=== PATIENT | female | born 1965 | race Caucasian/White ===

== ENCOUNTER 2022-01-22 12:57 | Outpatient (CLI) | payer OTHER, SELFPAY ==
--- NOTE | 2022-01-22 13:11 | MR_ITS ---
WS: [id number] MRI RIGHT SHOULDER NONCONTRAST TECHNIQUE: Sagittal T2, coronal T1, T2 and proton density imaging. Axial gradient PDE imaging. CLINICAL INFORMATION: R SHOULDER PAIN COMPARISON: None. FINDINGS: Moderate degenerative arthritis at the AC joint. Subacromial and subdeltoid fluid. Narrowing of the s ubacromial space. Slight subacromial spurring. Synovial thickening at the AC joint. Chronic thinning of the rotator cuff. High-grade tear of the distal supraspinatus proximal to the ins ertion. Retraction measures 19 mm. Chronic thinning of the infraspinatus. Tiny undersurface tear at the infraspinatus insertion. Edema w ithin the infraspinatus muscle belly. Normal teres minor. Normal subscapularis. Biceps tendon intact within the bicipital groove. Fluid along the biceps tendon sheath. Small amount of subacromial fluid. Small subcoracoid effusion. No evidence of avascular necrosis in the humeral head. Degenerative fraying of the glenoid labrum. MR/MR shoulder RT wo con* [id number] IMPRESSION: 1. Moderate degenerative arthritis AC joint with subacromial subdeltoid fluid. Narrowing of the subacromial space. 2. High-grade tear of the distal supraspinatus with 1.9 cm of tendon retractio n. 3. Chronic thinning of the infraspinatus with tiny undersurface insertional te ar. Marked thinning of the infraspinatus tendon distally. 4. Rotator cuff is otherwise intact. 5. Normal biceps tendon in the bicipital groove. 6. Intra-articular biceps tendon is intact. Tendinopathy involving the intra-a rticular biceps tendon with T2 signal abnormality.
--- NOTE | 2022-01-22 13:11 | MR_ITS ---
WS: [id number] MRI LEFT KNEE NONCONTRAST TECHNIQUE: Axial PD, coronal PD fat sat, coronal PD, sagittal PD, and sagittal PD fat-sat images obta ined. CLINICAL INFORMATION: L KNEE PAIN COMPARISON: None. FINDINGS: Distal quadriceps and patella tendons are intact. Hypertrophic patella. Moderate suprapatellar effusi on. ACL and PCL are intact. Mucoid degeneration of the ACL. Advanced tricompartmental arthritis. Norm al medial and lateral patellar retinaculum. Moderate chondromalacia patella. Normal medial and lateral collateral ligaments. Normal popliteal fossa. Advanced degenerative narrowi ng involving the medial joint compartment with erosive change and subchondral edema. Erosive changes involving the medial femoral condyle with complete erosion of the articular cartilage. Fluid-filled c left with synovial thickening involving the body of the medial meniscus may be due to prior meniscect lucho versus chronic tear. This extends to the meniscal root and free edge. Advanced chronic thinning o f the lateral meniscus with peripheral extrusion. MR/MR knee LT wo con* [id number] IMPRESSION: 1. Advanced tricompartmental arthritis. 2. Moderate suprapatellar effusion. 3. ACL and PCL are intact. Mucoid degeneration of the ACL. 4. Grade IV chondromalacia medial joint compartment with subchondral edema and erosion involving the medial femoral condyle. Fluid-filled medial joint compar tment with synovial thickening may be due to prior meniscectomy versus chronic high-grade tear. 5. Chronic thinning of the lateral meniscus. 6. Grade grade III chondromalacia patella. 7. Medial and lateral collateral ligaments appear intact. Outbridge grading: grade IV: full-thickness cartilage loss with underlying bone reactive changes
== END 2022-01-22 12:58 | disposition home or self-care (01) ==
LOC: RAD 12:58
PROVIDERS: PCP Nurse Practitioner; Visit Provider Nurse Practitioner
DX: M19.011 Primary osteoarthritis, right shoulder (principal); M75.101 Unspecified rotator cuff tear or rupture of right shoulder, not specified as traumatic; M25.462 Effusion, left knee; M22.42 Chondromalacia patellae, left knee; M17.12 Unilateral primary osteoarthritis, left knee
CPT/HCPCS: 73221; 73721

== ENCOUNTER → 2022-02-25 14:10 | Outpatient (BNVA) | payer OTHER, SELFPAY | PROVIDERS: PCP Nurse Practitioner; Referring Provider Nurse Practitioner; Visit Provider Specialist | DX: M19.011 Primary osteoarthritis, right shoulder (principal); M75.111 Incomplete rotator cuff tear or rupture of right shoulder, not specified as traumatic | CPT/HCPCS: 20610; 73030; 99204; J1100; J2795; J3301 ==

== ENCOUNTER 2022-03-04 06:00 | Outpatient (RCR) | payer OTHER, SELFPAY | END 2022-03-14 23:59 | disposition home or self-care (01) | LOC: TPT 06:00 | PROVIDERS: PCP Nurse Practitioner; Visit Provider Specialist | DX: M13.811 Other specified arthritis, right shoulder (principal) | CPT/HCPCS: 97162 ==

== ENCOUNTER → 2022-03-25 12:49 | Outpatient (BNVA) | payer OTHER, SELFPAY | PROVIDERS: PCP Nurse Practitioner; Visit Provider Specialist | DX: Z96.651 Presence of right artificial knee joint (principal); M17.12 Unilateral primary osteoarthritis, left knee; S72.91XB Unspecified fracture of right femur, initial encounter for open fracture type I or II; X58.XXXA Exposure to other specified factors, initial encounter; M25.561 Pain in right knee; M25.562 Pain in left knee | CPT/HCPCS: 73560; 73565; 99205 ==

== ENCOUNTER 2022-04-15 06:00 | Outpatient (RCR) | payer OTHER, SELFPAY | END 2022-05-12 23:59 | disposition home or self-care (01) | LOC: TPT 06:00 | PROVIDERS: PCP Nurse Practitioner; Visit Provider Specialist | DX: M19.011 Primary osteoarthritis, right shoulder (principal) | CPT/HCPCS: 97110; 97140 ==

== ENCOUNTER 2022-05-11 08:51 | Outpatient (CLI) | payer OTHER, SELFPAY ==
--- NOTE | 2022-05-11 09:00 | NM_ITS ---
WS: [id number] NUCLEAR MEDICINE BONE SCAN Radiopharmaceutical: 24.6 Tc-99m MDP mCi IV Injection site: antecubital Postinjection imaging delay: 2 hr CLINICAL INFORMATION: bilateral knee pain, rule out infection avascular necrosis COMPARISON: Radiograph 03/25/22 FINDINGS: Prior radiograph reviewed. Prior postoperative changes RIGHT medial compartment maral arthro plasty. Postoperative changes plate and screw fixation RIGHT femur. Normal blood flow and blood pool images RIGHT knee. Mild periarticular uptake along the RIGHT femoral shaft consistent with normal bony remodeling and postoperative change. No evidence of osteomyelitis or hardware loosening RIGHT femur or RIGHT knee. Normal blood flow images LEFT knee. Increased blood pool activity and activity involving the LEFT kne e medial joint compartments corresponding to the previously described osteochondral defect in the med ial femoral condyle. Uptake in the tibia likely due to reactive degenerative changes. Soft tissue contours: Normal. Kidneys: Normal. Other findings: Degenerative type uptake both AC joints. NM/NM bone 3 phase [id number] IMPRESSION: 1. No evidence of loosening or osteomyelitis involving the RIGHT femoral hardw are or RIGHT knee hemiarthroplasty. 2. Increased blood pool activity and delayed bone activity involving the LEFT knee medial joint compartment corresponding to the previously described osteoch ondral defect in the medial femoral condyle. Uptake in the adjacent tibia likel y due to reactive degenerative changes due to joint space narrowing.
== END 2022-05-11 08:52 | disposition home or self-care (01) ==
LOC: RAD 08:55
PROVIDERS: PCP Nurse Practitioner; Visit Provider Specialist
DX: M25.562 Pain in left knee (principal); M25.561 Pain in right knee; M21.852 Other specified acquired deformities of left thigh
CPT/HCPCS: 78315; A9561

== ENCOUNTER → 2022-06-08 10:53 | Outpatient (BNVA) | payer OTHER, SELFPAY | PROVIDERS: PCP Nurse Practitioner; Visit Provider Specialist | DX: M17.12 Unilateral primary osteoarthritis, left knee (principal); Z96.651 Presence of right artificial knee joint | CPT/HCPCS: 20610; 99213; J7327 ==

== ENCOUNTER → 2023-05-05 14:18 | Outpatient (BNVA) | payer OTHER, SELFPAY | PROVIDERS: PCP Nurse Practitioner; Visit Provider Specialist | DX: M65.331 Trigger finger, right middle finger | CPT/HCPCS: 73130; 99214 ==

== ENCOUNTER → 2023-05-07 10:41 | Outpatient (BNVA) | payer OTHER, SELFPAY | PROVIDERS: PCP Nurse Practitioner; Referring Provider Nurse Practitioner; Visit Provider Nurse Practitioner | DX: M17.12 Unilateral primary osteoarthritis, left knee (principal); Z96.651 Presence of right artificial knee joint | CPT/HCPCS: 20610; 99214; J1100; J2795; J3301 ==

== ENCOUNTER 2023-05-13 05:26 | Day surgery (SDC) | payer OTHER, SELFPAY ==
[2023-05-13] VITALS (10 sets, daily range): BP systolic 149–183; BP diastolic 84–104; PULSE 69–86; RESP 17–23; TEMP 36.1–36.6; O2SAT 95–100; BMI 28.0
[2023-05-13] MEDS: acetaminophen 1,000 MG/100 ML PIGGYBACK 400 MG IV (06:21)
[2023-05-13] MEDS: gabapentin 300 mg Capsule PO (06:21)
[2023-05-13] MEDS: CELEcoxib 200 mg Capsule 400 MG PO (06:21)
[2023-05-13] MEDS: sodium chloride 0.9% 1,000 ML 30 ML IV (06:26)
--- NOTE | 2023-05-13 06:29 | P.ANESASSM_ITS ---
Pre-Anesthetic Assessment Height/Weight: Height 1.57 m Weight 69.4 kg Temp Pulse Resp BP Pulse Ox O2 Del Method 97.9 F 71 18 154/89 98 Room Air 05/13/23 06:06 05/13/23 06:06 05/13/23 06:06 05/13/23 06:06 05/13/23 06:06 05/13/23 06:07 Operation Date: 05/13/23 07:00 Proposed Procedures p Trigger Finger Release/ Right long trigger finger release(Right) - Farnaz Alexis MD Was Beta Spencer taken within 24 hours: N/A Was Clonidine taken within 24 hours: N/A Last intake: Intake Last Liquid Date 05/12/23 Last Liquid Time 22:30 Last Solid Date 05/12/23 Last Solid Time 22:30 Social Alcohol and Tobacco Exam alert and oriented x 3 Airway Submandibular: within normal limits Cervical ROM: within normal limits Mallampati: Class II Dentition: chipped History/ROS No significant history except as noted and No significant complaints CV/HEM Hypertension GI Gastroesophageal Reflux Disease well-controlled Metabolic Thyroid Disease Anesthetic Plan ASA status: 2 Anesthesia: General Risk of > 500 ml blood loss (7ml/kg in children): No Medications/Allergies Home Medications Medication Instructions Recorded Confirmed Last Taken Type buspirone 5 mg tablet 5 mg PO TID 02/25/22 05/12/23 05/12/23 History omeprazole 40 mg capsule,delayed 40 mg PO BID 02/25/22 05/12/23 05/12/23 History release levothyroxine 75 mcg tablet 75 mcg PO DAILY 05/12/23 05/12/23 05/12/23 History lisinopril 20 mg tablet 20 mg PO BID 05/12/23 05/12/23 05/12/23 History venlafaxine 75 mg tablet 75 mg PO TID 05/12/23 05/12/23 05/12/23 History Allergies Allergy/AdvReac Type Severity Reaction Status Date / Time codeine Allergy Intermediate ADR-Itching Verified 05/13/23 06:02 Current Medications Generic Name Dose Route Start Last Admin Trade Name Freq PRN Reason Stop Dose Admin Sodium Chloride 1,000 mls @ 30 mls/hr 05/13/23 06:00 05/13/23 06:26 Sodium Chloride 0.9% IV 05/14/23 05:59 30 mls/hr .Q24H SHUKRI Administration PFSH Anesthesia Surgical History Status post right partial knee replacement Social History Smoking and tobacco/nicotine status: current every day tobacco/nicotine user Second hand smoke exposure: No Alcohol intake: current Alcohol intake frequency: few times a week Substance/Drug Use: current Substance/Drug use frequency: few times a month Adopted: No Caregiver/support person: No Lives independently: Yes Housing: House Number of children: 0 Highest education level completed: Master's Degree service: Yes status: Discharged branch: [employer] Current occupational status: unemployed Current occupational exposures/hazards: No Pets and animals: Yes Special carlos needs: No Agree to transfusion: Yes Data Anesthesia Cardiac Studies: No Data to Display
[2023-05-13] MEDS: famotidine 20 mg/2 mL INJ IVP (06:53)
[2023-05-13] MEDS: citric acid-sodium citrate 30 mL UDC PO (06:54)
--- NOTE | 2023-05-13 07:00 | W.PM.OPSUD ---
Surgery/Procedure H&P Update DATE OF PROCEDURE: May 13, 2023 DATE H&P PERFORMED: 05/05/23 H&P UPDATE INFORMATION: I have reviewed H&P completed within last 30 days, I have examined patient prior to procedure, No changes to prior documentation and H&P is in [facility] EMR on date indicated PLANNED PROCEDURE: Operation Date: 05/13/23 07:00 Proposed Procedures p Trigger Finger Release/ Right long trigger finger release(Right) - Farnaz Alexis MD Related Problem List Diagnoses (1) Trigger finger, right middle finger:
[2023-05-13] MEDS: ceFAZolin 2,000 MG in sodium chloride 0.9% (plus) 50 ML 100 MG IV (07:07)
[2023-05-13] MEDS: BUPivacaine 0.5% INJ 30 mL XX (07:45)
--- NOTE | 2023-05-13 08:34 | P.OP_ITS ---
Operative Report Date of procedure: May 13, 2023 Pre-op diagnosis: Right long trigger finger Post-op diagnosis: Right long trigger finger Post-op findings: Triggering right long finger Procedure done: Right trigger finger release Implants: None Surgeon: Farnaz Alexis MD [employer] Mate: None Anesthesia: General (Per LMA, ASA 2) Estimated blood loss (mL): 3 Tourniquet time (min): 18 (At 250 mmHg) IV fluids (mL): 700 Urine output (mL): 0 (No Mcgee) Complications: None Findings: Triggering of the right long finger Disposition: PACU (Then return to same-day surgery for discharge to home) Brief History: This 58-year-old woman presented with complaints of severe triggering of her right long finger. This is been going on for several months. The finger would frequently lock up and get stuck and she had difficulty making a full fist. Her pain was 8 of 10 with triggering. After discussion in the office, the patient wished to proceed with trigger finger release to the right long finger. Risks and complications were discussed with the patient. Questions were answered, and consents were signed. Procedure: Patient was brought to the operating theater. She was placed on the operating room table. General anesthetic was administered per LMA, ASA 2, without event. The patient tolerated it well. 2 g of Ancef was administered prophylactically. A tourniquet was placed high on the arm, and this was elevated after exsanguination of the arm. Tourniquet time was 18 minutes at 250 mmHg. A surgical pause was performed prior to commencement of the surgical procedure. At the time of the surgical pause we identified the site and side of surgery. Preoperatively, the patient's long finger had been colored over the proximal phalanx to identify the appropriate finger. We also identified the patient's identity and appropriate administration of IV antibiotics. Following the surgical pause, an incision was made in the area of the carpal tunnel release. It was identified, immediately following the skin incision, that the patient was indeed scheduled for a long finger trigger release without carpal tunnel surgery. Therefore, this incision was irrigated and anesthetized. It was closed with 3-0 nylon in an interrupted mattress fashion. The carpal canal was not entered, and the palmaris longus was not incised. At that point, realizing the patient was not scheduled for carpal tunnel release, an incision was made along the distal palmar crease beneath the long finger. Dissection continued through the skin to the subcutaneous tissues using a scalpel. Blunt dissection was then utilized to spread soft tissues and allow access to the A1 vernon. It was then incised longitudinally and sharply using a knife. This was accomplished without difficulty and atraumatically. Once the A1 vernon was released, tendons were brought up out of the wound and evaluated. There were no gross masses on the tendons. Tendons were returned to normal position. We then irrigated the wound and subsequently closed it with 3-0 nylon with an interrupted mattress type suture. Following closure of the wounds, the wounds were injected with local anesthetic into the subcutaneous tissues. Prior to closure, the wound was irrigated with local as well. Sterile dressing was then placed consisting of Dermabond, OpSite, fluffed fluffs sterile soft roll, and an Souleymane wrap. The patient was returned to recovery in satisfactory condition. She will be discharged home to follow-up with me in the office. There were no specimens. Related Problem List Diagnoses (1) Trigger finger, right middle finger:
[2023-05-13] MEDS: cetylpyridinium Lozenge 1 EACH MUCOUS MEM (09:06)
--- NOTE | 2023-05-13 14:15 | ANE.PACU2 ---
Inpatient post-anesthesia follow up: Airway intact: Yes Vital signs: Temperature 97.4 F Pulse Rate 73 Respiratory Rate 18 Blood Pressure 173/96 Pulse Oximetry 99 Oxygen Delivery Me thod Room Air Oxygen Flow Rate Fraction of Inspir ed Oxygen Hydration adequate: Yes Nausea and vomiting: No Pain level: 2 Mental status: Baseline
== END 2023-05-13 09:20 | disposition home or self-care (01) ==
PROVIDERS: PCP Nurse Practitioner; Visit Provider Specialist
PROC: (CPT 26055; principal; 2023-05-13 07:00)
DX: M65.331 Trigger finger, right middle finger (principal); I10 Essential (primary) hypertension; K21.9 Gastro-esophageal reflux disease without esophagitis
CPT/HCPCS: 26055; J0131; J0690; J1100; J2250; J2405; J2704; J3010; J3490; J7030

== ENCOUNTER → 2023-05-26 14:10 | Outpatient (BNVA) | payer OTHER, SELFPAY | PROVIDERS: PCP Nurse Practitioner; Visit Provider Specialist | DX: M65.331 Trigger finger, right middle finger (principal) | CPT/HCPCS: 99024 ==

== ENCOUNTER → 2023-08-13 09:45 | Outpatient (BNVA) | payer OTHER, SELFPAY | PROVIDERS: PCP Nurse Practitioner; Visit Provider Specialist | DX: M17.12 Unilateral primary osteoarthritis, left knee (principal); Z71.89 Other specified counseling | CPT/HCPCS: 20610; J1100; J2795; J3301 ==

== ENCOUNTER 2023-12-17 06:00 | Outpatient (CLI) | payer OTHER, SELFPAY | END 2023-12-17 23:59 | disposition home or self-care (01) | PROVIDERS: Visit Provider Nurse Practitioner | DX: Z46.89 Encounter for fitting and adjustment of other specified devices (principal); M17.12 Unilateral primary osteoarthritis, left knee | CPT/HCPCS: 20610; J1100; J2795; J3301; L1812 ==

== ENCOUNTER → 2024-01-31 13:56 | Outpatient (BNVA) | payer OTHER, SELFPAY | PROVIDERS: PCP Nurse Practitioner; Visit Provider Nurse Practitioner | DX: M25.561 Pain in right knee (principal); S72.91XD Unspecified fracture of right femur, subsequent encounter for closed fracture with routine healing; X58.XXXD Exposure to other specified factors, subsequent encounter; Z96.651 Presence of right artificial knee joint; M17.11 Unilateral primary osteoarthritis, right knee | CPT/HCPCS: 73560; 73565; 99214 ==

== ENCOUNTER → 2024-10-30 09:35 | Outpatient (BNVA) | payer OTHER, SELFPAY | PROVIDERS: PCP Nurse Practitioner; Visit Provider Specialist | DX: M17.12 Unilateral primary osteoarthritis, left knee (principal); Z46.89 Encounter for fitting and adjustment of other specified devices | CPT/HCPCS: 73560; 73565 ==

== ENCOUNTER 2024-10-30 11:03 | Outpatient (CLI) | payer OTHER, SELFPAY | END 2024-10-30 11:04 | disposition home or self-care (01) | LOC: SPT 11:04 | PROVIDERS: PCP Nurse Practitioner; Visit Provider Specialist | DX: Z46.89 Encounter for fitting and adjustment of other specified devices (principal); M17.12 Unilateral primary osteoarthritis, left knee | CPT/HCPCS: L1812 ==

== ENCOUNTER 2024-11-06 08:25 | Outpatient (CLI) | payer OTHER, SELFPAY ==
--- NOTE | 2024-11-06 09:15 | CT_ITS ---
WS: [id number] CT LEFT KNEE, NONCONTRAST [facility] TECHNIQUE: Noncontrast CT of the LEFT knee to include the LEFT hip and ankle. CLINICAL INFORMATION: PER [facility] PROTOCOL COMPARISON: None. DLP: 943.[address] scans at [facility] use at least one of these dose optimization techniques: automated exposure control; mA and/or kV adjustment per patient size (includes targeted exams where dose is matched to clinical indication); or iterative reconstruction. FINDINGS: Advanced tricompartmental arthritis LEFT knee with hypertrophic patella. Hypertrophic changes along the joint line. Small suprapatellar effusion. Sigmoid constipation. CT/CT knee LT [facility] [id number] IMPRESSION: Images obtained for preoperative purposes.
[2024-11-06 09:43] LABS: Hematocrit 45.8 % (36-47); Hemoglobin 15.30 g/dL (11.27-16.99); Mean Corpuscular HGB Conc 33.4 g/dL (30-55); Mean Corpuscular Hemoglobin 31.5 pg (27-33); Mean Corpuscular Volume 94.4 fl (85-98); Nucleated Red Blood Cells % 0 %; Platelet Count 400 10^3/cmm (157-399); Red Blood Count 4.85 10^6/uL (3.85-5.65); White Blood Count 6.96 10^3/uL (3.29-11.43)
[2024-11-06 09:45] LABS: Glucose Urine UA 1+ (Normal); Nitrate Urine Negative (Negative); Specific Gravity, Urine 1.016 (1.005-1.030)
[2024-11-06 09:50] LABS: Add Urine Microscopic? YES
[2024-11-06 10:02] LABS: Alanine Aminotransferase 24 U/L (0-33); Albumin Level 4.8 g/dL (3.5-5.2); Alkaline Phosphatase 107 U/L (35-105); Anion Gap 18.3 (5-19); Aspartate Amino Transferase 21 U/L (0-32); Blood Urea Nitrogen 13 mg/dL (8-23); Calcium 9.9 mg/dL (8.5-10.5); Carbon Dioxide 26 mmol/L (22-29); Chloride 96 mmol/L (98-107); Globulin 2.8 g/dL (1.3-4.6); Glucose 172 mg/dL (65-115); Osmolality Calculated 288 mOsm/kg (285-295); Potassium 3.3 mmol/L (3.5-5.1); Sodium 137 mmol/L (136-145); Total Protein 7.6 g/dL (6.6-8.7)
== END 2024-11-06 08:26 | disposition home or self-care (01) ==
PROVIDERS: PCP Nurse Practitioner; Visit Provider Specialist
DX: M17.12 Unilateral primary osteoarthritis, left knee (principal); Z01.818 Encounter for other preprocedural examination
CPT/HCPCS: 36415; 73700; 80053; 81001; 85025; 87086

== ENCOUNTER 2024-12-05 14:12 | Observation (INO) | payer OTHER, SELFPAY ==
[2024-12-05] VITALS (14 sets, daily range): BP systolic 113–143; BP diastolic 71–96; PULSE 66–93; RESP 13–21; TEMP 36.3–37.7; O2SAT 94–98
[2024-12-05] MEDS: acetaminophen 1,000 MG/100 ML PIGGYBACK 400 MG IV ×2 (08:30→15:54)
--- NOTE | 2024-12-05 09:53 | ANES.PREANE2 ---
Pre-Anesthetic Assessment Height/Weight: Height 1.57 m Weight 71.214 kg Temp Pulse Resp BP Pulse Ox O2 Del Method 97.4 F L 69 18 138/96 98 Room Air 12/05/24 08:19 12/05/24 08:19 12/05/24 08:19 12/05/24 08:19 12/05/24 08:19 12/05/24 08:19 Operation Date: 12/05/24 11:00 Proposed Procedures p Marco Robot Total Knee Arthroplasty(Left) - Farnaz Alexis MD Familial anesthetic complications: none Was Beta Spencer taken within 24 hours: N/A Was Clonidine taken within 24 hours: N/A Last intake: Intake Last Liquid Date 12/04/24 Last Liquid Time 22:00 Last Solid Date 12/04/24 Last Solid Time 22:00 Social Tobacco and No alcohol Exam alert, oriented x 3, clear to auscultation bilaterally and regular rate & rhythm Airway Mallampati: Class II CV/HEM Hypertension Metabolic Thyroid Disease Anesthetic Plan ASA status: 3 Anesthesia: Regional (specify below) Risk of > 500 ml blood loss (7ml/kg in children): No Medications/Allergies Home Medications ?Medication ?Instructions ?Recorded ?Confirmed ?Last Taken ?Type buspirone 5 mg tablet 5 mg PO TID 02/25/22 12/05/24 12/04/24 History omeprazole 40 mg capsule,delayed 40 mg PO DAILY 02/25/22 12/05/24 12/04/24 History release levothyroxine 75 mcg tablet 75 mcg PO DAILY 05/12/23 12/05/24 12/05/24 History lisinopril 20 mg tablet 20 mg PO BEDTIME 05/12/23 12/05/24 12/04/24 History venlafaxine 75 mg tablet 75 mg PO TID 05/12/23 12/05/24 12/04/24 History hinged knee brace #1 ea 12/17/23 12/05/24 Unknown Rx right hinged knee brace #1 ea 01/31/24 12/05/24 Unknown Rx Hinged Knee Brace, left #1 ea 10/30/24 12/05/24 Unknown Rx crutches #1 ea 10/30/24 12/05/24 Unknown Rx amlodipine 5 mg tablet 5 mg PO DAILY 11/20/24 12/05/24 12/04/24 History Allergies Allergy/AdvReac Type Severity Reaction Status Date / Time codeine Allergy Intermediate ADR-Itching Verified 12/04/24 16:41 Current Medications Generic Name Dose Route Start Last Admin Trade Name Rohan PRN Reason Stop Dose Admin Sodium Chloride 1,000 mls @ 30 mls/hr 12/05/24 08:00 12/05/24 08:29 Sodium Chloride 0.9% IV 12/06/24 07:59 30 mls/hr .Q24H SHUKRI Administration PFSH Anesthesia Surgical History Status post right partial knee replacement Social History Smoking and tobacco/nicotine status: current every day tobacco/nicotine user Second hand smoke exposure: No Alcohol intake: current Alcohol intake frequency: few times a week Substance/Drug Use: current Substance/Drug use frequency: few times a month Adopted: No Caregiver/support person: No Lives independently: Yes Housing: House Number of children: 0 Highest education level completed: Master's Degree service: Yes status: Discharged branch: [employer] Current occupational status: unemployed Current occupational exposures/hazards: No Pets and animals: Yes Special carlos needs: No Agree to transfusion: Yes Anesthesia Procedures Nerve Block Nerve Block 1: Main Anesthesia: spinal anesthesia block Time Out Performed: Yes Consent: requested by attending/covering physician, from patient, from other, risks and benefits reviewed and patient agrees to proceed Nerve block location: adductor canal (L) Anesthesia monitors applied: pulse oximetry, EKG, BP cuff and oxygen Anesthetic Used: ropivicaine 0.5% (30 ml) and with decadron (4 mg) Ultrasound used to: visualize and ID femerol nerve Nerve Stimulator Used?: No Interscalene/Femoral BLK: 4 stimuplex 21 g needle used for position and inplane approach and visualize local anesthetic spread Injection: neg aspiration of heme Patient Tolerated Procedure: well Complications: none
--- NOTE | 2024-12-05 11:27 | W.PM.OPSFHP ---
Same Day Surgery H&P Indication for Procedure/HPI DATE OF PROCEDURE: December 05, 2024 CHIEF COMPLAINT/INDICATIONFOR SURGICAL PROCEDURE: Severe degenerative osteoarthritis left knee PREOP DIAGNOSIS: Severe degenerative osteoarthritis left knee PLANNED PROCEDURE: Operation Date: 12/05/24 11:00 Proposed Procedures p Marco Robot Total Knee Arthroplasty(Left) - Farnaz Alexis MD Medications/Allergies* Home Medications ?Medication ?Instructions ?Recorded ?Confirmed ?Type buspirone 5 mg tablet 5 mg PO TID 02/25/22 12/05/24 History omeprazole 40 mg capsule,delayed 40 mg PO DAILY 02/25/22 12/05/24 History release levothyroxine 75 mcg tablet 75 mcg PO DAILY 05/12/23 12/05/24 History lisinopril 20 mg tablet 20 mg PO BEDTIME 05/12/23 12/05/24 History venlafaxine 75 mg tablet 75 mg PO TID 05/12/23 12/05/24 History amlodipine 5 mg tablet 5 mg PO DAILY 11/20/24 12/05/24 History Allergies/Adverse Reactions Allergy/AdvReac Type Severity Reaction Status Date / Time codeine Allergy Intermediate ADR-Itching Verified 12/04/24 16:41 Current Medications: Generic Name Dose Route Start Last Admin Trade Name Freq PRN Reason Stop Dose Admin Sodium Chloride 1,000 mls @ 30 mls/hr 12/05/24 08:00 12/05/24 10:13 Sodium Chloride 0.9% IV 12/06/24 07:59 30 mls/hr .Q24H SHUKRI Administration Pertinent History/Comorbid Conditions* Surgical History (Updated 02/04/24 @ 16:56 by THA Krueger) Status post right partial knee replacement Social History Smoking and tobacco/nicotine status: current every day tobacco/nicotine user Second hand smoke exposure: No Alcohol intake: current Alcohol intake frequency: few times a week Substance/Drug Use: current Substance/Drug use frequency: few times a month Adopted: No Caregiver/support person: No Lives independently: Yes Housing: House Number of children: 0 Highest education level completed: Master's Degree service: Yes status: Discharged branch: [employer] Current occupational status: unemployed Current occupational exposures/hazards: No Pets and animals: Yes Special carlos needs: No Agree to transfusion: Yes Pertinent Exam Findings alert, oriented x 3, clear to auscultation bilaterally (Per nursing and Dr. Garcia), regular rate & rhythm (Per nursing and Dr. Garcia) and operative site marked Further detail in the preoperative evaluation by Dr. Fajardo dated November 20 Recommendations Risks and benefits of procedure reviewed and Patient/family agree to proceed Surgery/Procedure today Coding Level of Care Code Acute Code for Chg Fwd
[2024-12-05] MEDS: ceFAZolin 2,000 mg SDV 2000 MG IVP ×2 (11:52→20:29)
[2024-12-05] MEDS: tranexamic acid 1,000 mg/10mL SDV 1000 MG IV (12:05)
[2024-12-05] MEDS: BUPivacaine liposome 13.3 mg/mL SDV 20 mL 266 MG XX (13:00)
[2024-12-05] MEDS: BUPivacaine 0.5% INJ 10 mL 20 ML XX (13:03)
[2024-12-05] MEDS: ceFAZolin 1,000 mg SDV 2000 MG IRRIGATION (13:09)
--- NOTE | 2024-12-05 14:21 | PM.OP ---
Operative Report Date of procedure: December 05, 2024 Pre-op diagnosis: Primary osteoarthritis left knee with flexion contracture and varus deformity Post-op diagnosis: Primary osteoarthritis left knee with flexion contracture and varus deformity Post-op findings: Flexion contracture of approximately 7 degrees with significant varus deformity Procedure done: Left total knee arthroplasty with Marco guidance Implants: The [place] total knee system with a size 4 triathlon beaded cruciate retaining femur left, a triathlon titanium tibial component size 4 beaded, a triathlon X3 tibial bearing CS insert size 4 x 10 mm and a beaded triathlon titanium asymmetric patella size 32 x 10 mm Specimens removed/disposition: Bone, disposed of Pathology: None Surgeon: Farnaz Alexis MD Electrical Tryout Person: Risa Mederos, nurse practitioner, whose services were required for positioning, exposure, placement of the prosthesis, retraction, and wound closure Anesthesia: Spinal (With MAC and preoperative adductor block, ASA 3) Estimated blood loss (mL): 170 Tourniquet time (min): 0 (Not utilized) IV fluids (mL): 1,400 Urine output (mL): 300 Complications: None Findings: Severe degenerative osteoarthritis with complete obliteration of joint space, particularly medially, with 7 degree flexion contracture and significant varus deformity Condition: stable Disposition: PACU Brief History: This 59-year-old woman presented to the office with ongoing complaints of left knee pain. Nonoperative measures were no longer helping, and she had had an increase in her popping. She had difficulty going up and down stairs. Range of motion was limited as well. After discussion in the office, the patient wished to proceed with left total knee arthroplasty. Risks and complications were discussed with her. Consents were signed and questions were answered. She was given further opportunity for questions prior to the surgical procedure. Procedure: The patient was brought to the operating theater, and after undergoing spinal anesthesia with MAC and preoperative adductor block, ASA 3, the left lower extremity was prepped with Dura-Prep and draped in usual fashion following placement of a tourniquet high on the leg. The leg was then draped free.? Tourniquet was not elevated throughout the surgical procedure. Prior to commencement of the procedure, a surgical pause was performed, and at the time of the surgical pause, we confirmed the site and side of surgery. Additionally, we confirmed the appropriate and timely administration of preoperative antibiotics, Ancef 2 g.?The availability of equipment was confirmed, and the patient's identity was verbalized as well. Marco timeout was also performed. Following the surgical pause, an incision was made centering over the patella continuing proximally and distally as necessary to allow access to the knee joint. Prior to incision, assessment was made of the patient's leg, and there was noted to be varus deformity with a 7 degree flexion contracture. Dissection continued through skin and soft tissues using a scalpel. Hemostasis was obtained using electrocautery. The skin incision was followed by a median parapatellar arthrotomy. The leg was extended, and the patella was able to be displaced laterally.? Appropriate arrays and markers were placed in appropriate position for use of the Marco.? Preoperative planning had been accomplished and was discussed in detail with the Marco provider service representative.? Intraoperative mapping of the femur and tibia was accomplished after the arrays were placed.? Internal markers were also placed.? Once we had accomplished the Marco mapping, we began the appropriate resections for placement of the prosthesis.? The plan was for a cruciate retaining left total knee arthroplasty. Once appropriate mapping had been accomplished retraction was established using manual retraction and the Marco leg positioner and retractors, the knee was evaluated.? There was significant osteoarthritic change as well as a varus deformity and a 7 degree flexion contracture.? Intraoperative planning was adjusted based on this preoperative varus deformity as well as balancing maneuvers. Appropriate bone resection was accomplished using the Marco.? Initially, we addressed the tibia, and this was followed by the femur. Osteophytes were removed prior to this portion of the procedure.? We had performed a medial release at the beginning of the procedure to allow for placement of the array.? Proximal tibia was evaluated, and it was felt that appropriate size for the tibia was a size 4.? The size 4 tray was noted to fit nicely with good coverage.? Rim fit was accomplished with the size 4. A trial reduction was accomplished after osteophytes had been removed as well as the medial and lateral menisci.? We had removed the anterior cruciate ligament at the beginning of the case and preserved the posterior cruciate ligament.? Trial reduction was accomplished with a size 4 femoral cruciate retaining component, a size 4 tibial tray and a size 4 CS tibial bearing insert which was 9 mm thickness. Initially, the knee was tight slightly loose in extension. Also, with full flexion, there was some lift off of the component. For this reason, a posterior release was accomplished medially and laterally. We then performed a trial with a 10 mm thick insert with the same tray and femoral components. With this insert, the knee was noted to be well-balanced. Alignment was felt to be appropriate as well.? Trial components were removed after the femur had been drilled.? Prior to removal of the tibial tray which had been pinned in position with appropriate rotation as determined by the Marco plan, we broached the tibia.? Subsequently, the 4 drill holes were made for the prosthetic component.? All trial components were removed, and the wound was irrigated.? Plans were made for insertion of the prosthetic components.? Prior to this, the patella was manually prepared.? After resection of the articular surface with the jogging system, it was measured and measured a 32 mm patella.? We resected approximately 9 mm of patella.? Patellar height was restored with the patellar component. Once again, the wound was irrigated. The Tritanium tibia was impacted into position.? The beaded femur was then impacted into position in a cementless fashion. The CS tibial insert was placed prior to placement of the femoral component. The patella was pressed into position with a patellar clamp.? Exparel was injected about the components deep and superficially.? The knee was then copiously irrigated with betadine and saline and suctioned dry. Attention was then directed to closure. Closure was accomplished with 0 Vicryl in the fascial tissues.? The suture line of 0 Vicryl was supplemented with strata fix, #1, with a running suture from proximal to distal and a second running stitch from distal to proximal.? This was followed by Surgiflo and vancomycin powder.? Following this, a 2-0 Strata Fix was used in the subcutaneous tissues, and the skin was closed with 3-0 Strata fix.? Care was taken to assure an excellent subcutaneous as well as skin closure.? A sterile dressing was then placed consisting of Dermabond Prineo, OpSite, ABD, sterile soft roll, and an Souleymane wrap including over the foot. The patient was returned the Recovery Room in a satisfactory condition. X-rays were obtained and reviewed there.? The patient will be discharged to the floor for postoperative rehabilitation and pain management. Related Problem List Diagnoses 1. Primary osteoarthritis of left knee:
--- NOTE | 2024-12-05 14:48 | XR_ITS ---
WS: [id number] Exam: XR knee LT 1-2V 17471 Date/Time of Exam: 12/05/2024 2:48 PM Reason For Exam: post op Comparison 10/30/2024. LEFT total knee arthroplasty is in satisfactory position. Postop changes in the adjacent soft tissues. XR/XR knee LT 1-2V 94300 IMPRESSION: 1. LEFT total knee replacement in satisfactory position.
--- NOTE | 2024-12-05 15:22 | PC.NURSE ---
accepted into room 268 with Vilma, INFORMATION TECHNOLOGY ANALYST at side - pt in no distress upon this nurse exiting care - BP 120/74 - heart 71 - 02 98% temp 97.8
[2024-12-05] MEDS: mupirocin oint 22 gm 1 APPLIC NASAL (17:25)
[2024-12-05] MEDS: chlorhexidine gluconate 0.12% Btl 473 mL 30 ML MUCOUS MEM (17:25)
[2024-12-05] MEDS: sennosides-docusate Tablet 2 TAB PO (17:25)
[2024-12-06] VITALS (8 sets, daily range): BP systolic 123–157; BP diastolic 68–93; PULSE 64–76; RESP 14–18; TEMP 36.4–36.8; O2SAT 94–98
[2024-12-06] MEDS: oxyCODONE 5 mg IR Tab/Cap PO ×3 (00:37→11:56)
[2024-12-06] MEDS: acetaminophen 1,000 MG/100 ML PIGGYBACK 400 MG IV ×2 (00:39→08:29)
--- NOTE | 2024-12-06 03:33 | PC.NURSE ---
Patient was administered oxycodone IR at 0037. Patient hit call light at 0315 and stated she was very itchy. This nurse assessed patients skin and saw no sign of hives or swelling. Patient stated she has had this reaction to codeine in the past and it is just itchy. Patient said she has only had hives on time and that was from peanuts. Nurse told patient she would contact Dr. Alexis and see if Dr. Alexis would order something to help with the itching. Patient stated No, i do not want to wake up Dr. Alexis this early and i can not take benadryl it makes me stay awake. Nurse told patient that Dr. Alexis would not mind being contacted if the itching it intolerable. Patient stated No it is ok. I will talk to Dr. Alexis when she comes in. Nurse will continue to monitor patient for remainder of shift.
[2024-12-06 03:40] LABS: Hematocrit 33.4 % (36-47); Hemoglobin 11.20 g/dL (11.27-16.99); Mean Corpuscular HGB Conc 33.5 g/dL (30-55); Mean Corpuscular Hemoglobin 31.2 pg (27-33); Mean Corpuscular Volume 93.0 fl (85-98); Nucleated Red Blood Cells % 0 %; Platelet Count 321 10^3/cmm (157-399); Red Blood Count 3.59 10^6/uL (3.85-5.65); White Blood Count 12.48 10^3/uL (3.29-11.43)
[2024-12-06 03:57] LABS: Anion Gap 14.7 (5-19); Blood Urea Nitrogen 14 mg/dL (8-23); Calcium 8.6 mg/dL (8.5-10.5); Carbon Dioxide 24 mmol/L (22-29); Chloride 101 mmol/L (98-107); Creatinine Clr Calc Pharmacy 68.2524; Glucose 145 mg/dL (65-115); Osmolality Calculated 283 mOsm/kg (285-295); Potassium 4.7 mmol/L (3.5-5.1); Sodium 135 mmol/L (136-145)
[2024-12-06] MEDS: ceFAZolin 2,000 mg SDV 2000 MG IVP ×2 (04:22→11:49)
[2024-12-06] MEDS: multivitamin therapeutic Tablet 1 TAB PO (08:32)
[2024-12-06] MEDS: sennosides-docusate Tablet 2 TAB PO (08:32)
[2024-12-06] MEDS: mupirocin oint 22 gm 1 APPLIC NASAL (08:35)
[2024-12-06] MEDS: chlorhexidine gluconate 0.12% Btl 473 mL 30 ML MUCOUS MEM ×2 (08:35→11:51)
--- NOTE | 2024-12-06 09:55 | PC.CHAP ---
Pastoral Care Encounter/Spiritual Assessment Type of Contact [] Declined rock loader visit [] Patient/Family/Request visit [] Outpatient visit [] Follow-up visit [] Physician referral [] Code/Alert [] Routine visit [] Staff referral [] Actively dying [] Patient sleeping [] Family support [] [] Out of room [] Palliative care [] [x] Receiving care in room [] Pre-surgical visit [] Trauma [] Long length of stay [] ICU visit [] Other: Relational/Emotional Strength [] Patient feels connected with others/family/visitors/staff [] Distress [] Loneliness/isolation [] Abandonment Spirituality of Patient [] Person of Marcy [] Attends Yarsanism of their Marcy [] Believes in Prayer [] Reads Bible or Nondenominational materials [] There are Spiritual issues to be addressed Hand I Thermal Cutter Interventions [] Prayer [] Active listening [] Non-anxious presence [] Spiritual/emotional support [] Crisis/trauma care [] Spiritual counseling [] Bereavement support [] Provided bereavement packet [] Provided Bible/devotional materials [] Provided toy/stuffed animal, coloring book to patient or family member [] Provided Communion [] Anointing/[place] [] Salvation [] Completed spiritual assessment [] Other: Impact on Illness or Injury [] Angry [] Fearful [] Anxious [] Often cries [] Exhaustion [] Unable to work [] Unable to attend gnosticist [] Unable to walk/stand [] Unable to read [] Unable to drive [] Unable to eat/drink [] Unable to sleep [] Unable to be with family [] Patient intubated [] Other: Summary Time spent with patient
--- NOTE | 2024-12-06 13:42 | PM.DCS ---
Discharge Providers Date of Admission: 12/05/24 14:12 Date of Discharge: December 06, 2024 Attending Provider at Admission: Farnaz Alexis MD Attending Provider at Discharge: Farnaz Alexis MD Primary Care Provider: PING Montanez Diagnoses at Discharge Discharge Diagnosis 1. Primary osteoarthritis of left knee: 2. Status post total left knee replacement not using cement: Reason for Visit Reason for Visit: M17.12 Brief History: This 59-year-old woman presented to the office with ongoing complaints of left knee pain. Nonoperative measures were no longer helping, and she had had an increase in her popping. She had difficulty going up and down stairs. Range of motion was limited as well. After discussion in the office, the patient wished to proceed with left total knee arthroplasty. Risks and complications were discussed with her. Consents were signed and questions were answered. She was given further opportunity for questions prior to the surgical procedure. Physical Exam Const: COMMON NORMALS: no acute distress, average body habitus, patient oriented x3 and alert GENERAL APPEARANCE: cooperative and comfortable ORIENTATION/CONSCIOUSNESS: Yes awake HENMT: COMMON NORMALS: normocephalic and atraumatic HEAD & SCALP: normocephalic and atraumatic Eye: GENERAL EYE: appearance normal, both eyes and all related structures Chest: COMMONS NORMALS: normal inspection of the chest Resp: COMMON NORMALS: normal respiratory effort EFFORT & INSPECTION: Yes able to speak in complete sentences and Yes symmetric chest movement Extremity: LEFT LOWER EXTREMITY: Yes knee joint (Large outer dressing is removed) Left knee: Yes inspection (Minimal swelling and ecchymosis), Yes palpation (Minimal discomfort), Yes ROM (Not evaluated) and Yes neurovascular exam (Intact distally with no evidence of DVT) Neuro: COMMON NORMALS: patient oriented x3 SENSORIUM/ORIENTATION: Yes alert Psych: COMMON NORMALS: mental status grossly normal APPEARANCE: Yes grossly normal ATTITUDE: Yes calm and Yes engaged ATTENTION/CONCENTRATION: Yes attention grossly intact Skin: COMMON NORMALS: no rashes or lesions noted GENERAL SKIN EXAM: no rashes or lesions noted Urinary Catheter Management: Mcgee: Cath Placed During This Visit: yes Reason for Continuing Indwelling Catheter: Required Immobilization for Trauma or Surgery or Anesthesia Urinary Catheter Date of Insertion: 12/05/24 Urinary Catheter Time of Insertion: 12:10 Discharge Data Studies Completed and Pending Completed Studies During Hospitalization Category Date Time Status XR knee LT 1-2V 51446 Routine Exams 12/05/24 14:48 Completed Radiology Impressions Knee X-Ray 12/05/24 14:48 IMPRESSION: 1. LEFT total knee replacement in satisfactory position. Laboratory Results WBC 12.48 10^3/uL (3.29-11.43) H 12/06/24 03:33 RBC 3.59 10^6/uL (3.85-5.65) L 12/06/24 03:33 Hgb 11.20 g/dL (11.27-16.99) L 12/06/24 03:33 Hct 33.4 % (36-47) L 12/06/24 03:33 MCV 93.0 fl (85-98) 12/06/24 03:33 MCH 31.2 pg (27-33) 12/06/24 03:33 MCHC 33.5 g/dL (30-55) 12/06/24 03:33 RDW 12.8 % (12.1-15.1) 12/06/24 03:33 Plt Count 321 10^3/cmm (157-399) 12/06/24 03:33 MPV 9.4 fL (7.4-10.4) 12/06/24 03:33 Neut % (Auto) 89.0 % 12/06/24 03:33 Lymph % (Auto) 5.8 % 12/06/24 03:33 [place] % (Auto) 4.8 % 12/06/24 03:33 Eos % (Auto) 0.0 % 12/06/24 03:33 Baso % (Auto) 0.1 % 12/06/24 03:33 Neut # (Auto) 11.10 10^3/uL (1.8-7.7) H 12/06/24 03:33 Lymph # (Auto) 0.7 10^3/uL (0.8-4.8) L 12/06/24 03:33 [place] # (Auto) 0.6 10^3/uL (0.2-0.9) 12/06/24 03:33 Eos # (Auto) 0.0 10^3/uL (0.0-0.8) 12/06/24 03:33 Baso # (Auto) 0.0 10^3/uL (0.0-0.1) 12/06/24 03:33 Nucleated RBC % (auto) 0 % 12/06/24 03:33 Nucleated RBCs # 0.0 /100WBC 12/06/24 03:33 Sodium 135 mmol/L (136-145) L 12/06/24 03:33 Potassium 4.7 mmol/L (3.5-5.1) 12/06/24 03:33 Chloride 101 mmol/L (98-107) 12/06/24 03:33 Carbon Dioxide 24 mmol/L (22-29) 12/06/24 03:33 Anion Gap 14.7 (5-19) 12/06/24 03:33 BUN 14 mg/dL (8-23) 12/06/24 03:33 Creatinine 0.8 mg/dL (0.5-0.9) 12/06/24 03:33 GFR Calculation 72.9 mL/min (90-130) L 12/06/24 03:33 Glucose 145 mg/dL (65-115) H 12/06/24 03:33 Calculated Osmolality 283 mOsm/kg (285-295) L 12/06/24 03:33 Calcium 8.6 mg/dL (8.5-10.5) 12/06/24 03:33 Vitals Last Vital Signs Temp 97.5 F L 12/06/24 11:52 Pulse 68 12/06/24 11:52 Resp 18 12/06/24 11:56 BP 132/82 12/06/24 11:52 Pulse Ox 97 12/06/24 11:56 O2 Del Method Room Air 12/06/24 11:52 Discharge Plan Discharge Patient Disposition: Home Health Service Condition: Stable Prescriptions: New celecoxib 200 mg Capsule 200 mg PO 1XD 30 Days Qty: 30 0RF acetaminophen 500 mg Tablet 1,000 mg PO Q8H 15 Days Qty: 90 0RF aspirin 325 mg Tablet,Delayed Release (Dr/Ec) 325 mg PO DAILY 30 Days Qty: 30 0RF oxycodone 5 mg Tablet 5 mg PO Q4H PRN (Reason: Moderate To Severe Pain) 7 Days Qty: 40 0RF Continued buspirone 5 mg tablet 5 mg PO TID omeprazole 40 mg capsule,delayed release(DR/EC) 40 mg PO DAILY (DME) crutches See Rx Instructions .Route .MEDSUPPLY Qty: 1 0RF Rx Instructions: As directed (DME) Hinged Knee Brace, left See Rx Instructions .Route .MEDSUPPLY Qty: 1 0RF Rx Instructions: As directed (DME) hinged knee brace See Rx Instructions .Route .MEDSUPPLY Qty: 1 0RF Rx Instructions: As directed (DME) right hinged knee brace See Rx Instructions .Route .MEDSUPPLY Qty: 1 0RF Rx Instructions: As directed amlodipine 5 mg tablet 5 mg PO DAILY venlafaxine 75 mg Tablet 75 mg PO TID lisinopril 20 mg Tablet 20 mg PO BEDTIME levothyroxine 75 mcg Tablet 75 mcg PO DAILY Discharge Order = DC NOW: Discharge Order (Routine); Ordered 12/06/24 Ordered By: Farnaz Alexis Other Ambulatory Orders: DME: Walker (Order) Location: None Selected Ordered By: Farnaz Alexis Referrals: [facility] [Outside] Farnaz Alexis MD [Physician, Orthopedics] - 12/18/24 1:30 pm Discharge Diet: Advance as tolerated and Usual diet Discharge Activity: Increase activity as tolerated, Limit activity as instructed, Use walker/crutches as instructed and As per PT/OT instructions Patient Instructions: Acetaminophen (By mouth), Oxycodone/Acetaminophen (By mouth), Aspirin (By mouth), Celecoxib (By mouth), Acute Wound Care (DC), Opioid Safety, Post Anesthesia Care, Patient Portal & [place] Instructions Activity Restrictions/Additional Instructions: Ice to left knee. You may weight-bear as tolerated. Range of motion, strengthening, and gait training per physical therapy. I will remove your large outer dressing prior to your discharge from the hospital. Please maintain the under dressing which is a clear plastic with a white center until it comes off on its own. If it begins to leak, you may remove it so that you do not hold fluid against the wound. Discharge Attestations Time Spent in Discharge Care*: greater than 30 min Specific Discharge Activities: educating patient, documenting/other paperwork and evaluating patient/reviewing data Quality Metrics Clinical Quality Measures [ No reported AMI, CVA or VTE this stay] Coding Level of Care Code Acute Code for Chg Fwd Diagnoses Primary osteoarthritis of left knee M17.12 Status post total left knee replacement not using cement Z96.652
== END 2024-12-06 14:40 | disposition home health service (06) ==
LOC: MEDSURG 14:12
PROVIDERS: Admitting Provider Specialist; PCP Nurse Practitioner; Visit Provider Specialist
PROC: 8E0Y0CZ Robotic Assisted Procedure of Lower Extremity, Open Approach (ICD-10-PCS; CPT 27447; principal; 2024-12-05 11:00)
DX: M17.12 Unilateral primary osteoarthritis, left knee (principal); M21.162 Varus deformity, not elsewhere classified, left knee; K21.9 Gastro-esophageal reflux disease without esophagitis; F17.200 Nicotine dependence, unspecified, uncomplicated; I10 Essential (primary) hypertension; E07.9 Disorder of thyroid, unspecified
CPT/HCPCS: 27447; 20985; 36415; 51702; 73560; 80048; 85025; 97110; 97116; 97162; 97166; A4216; C1776; G0378; J0131; J0666; J0690; J1100; J2250; J2405; J2704; J2795; J3373; J3490; J7030; J9999

== ENCOUNTER → 2024-12-18 13:19 | Outpatient (BNVA) | payer OTHER, SELFPAY | PROVIDERS: PCP Nurse Practitioner; Visit Provider Nurse Practitioner | DX: Z98.890 Other specified postprocedural states (principal); Z96.652 Presence of left artificial knee joint | CPT/HCPCS: 99024 ==

== ENCOUNTER → 2025-01-29 13:56 | Outpatient (BNVA) | payer OTHER, SELFPAY | PROVIDERS: PCP Nurse Practitioner; Visit Provider Specialist | DX: Z98.890 Other specified postprocedural states (principal); Z96.652 Presence of left artificial knee joint | CPT/HCPCS: 73560; 73565; 99024 ==